=== PATIENT | male | born 1985 | race Caucasian/White ===

== ENCOUNTER → 2017-03-06 13:26 | Outpatient (CLI) | payer OTHER | END | disposition home or self-care (01) | LOC: D.LABREF 13:26 | DX: R22.1 Localized swelling, mass and lump, neck (principal) ==

== ENCOUNTER 2017-03-24 06:46 | Day surgery (SDC) | payer OTHER ==
[~2017-03-24 06:46] MED LIST: AMOXIL875 MG PO
[2017-03-24] MEDS ORDERED: AUGMENTIN 875-11 TAB PO (08:42)
[2017-03-24 08:46] VITALS: BP 124/74; BMI 37.4
--- NOTE | 2017-03-24 10:36 | HP ---
PATIENT: ADIS STONE MEDICAL RECORD: [id number] ACCOUNT: [id number] LOCATION:D.OPS : 84 ADMISSION DATE: 03/24/17 HISTORY AND PHYSICAL EXAMINATION HISTORY OF PRESENT ILLNESS: Adis is a 31-year-old male with a left neck mass. Pathology on cell block was negative for malignancy. CT shows a well demarcated cyst. 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 PAST MEDICAL HISTORY: Otherwise negative. PAST SURGICAL HISTORY: None. CURRENT MEDICATIONS: None. ALLERGIES: No known drug allergies. PHYSICAL EXAMINATION: GENERAL: He is healthy-appearing, developmentally normal. FACE: Normal, symmetric, no lesions. EYES: Sclerae and conjunctivae are normal. NOSE: No mass, polyps or drainage. ORAL CAVITY AND OROPHARYNX: Tongue protrudes in midline. Floor of the mouth is normal. The pharynx is normal. NECK: He has got a 4 cm mass medial to the sternocleidomastoid superiorly in level 2-3. He has no other masses or adenopathy. CHEST: Clear. CARDIOVASCULAR: Regular rate and rhythm. No murmur. EXTREMITIES: Normal. IMPRESSION: Left neck mass. PLAN: Excision of left neck mass, direct laryngoscopy, possible left neck dissection. TRANSINT:[id number] Voice Confirmation ID: [id number] DOCUMENT ID: [id number] FLAKO BLANCAS MD at 1036 CC: [id number] DICTATION DATE: 03/20/17 0950 ASSOCIATE DATA SCIENTIST: 03/20/17 1011 [facility] [address] [place] [address]
--- NOTE | 2017-03-31 17:12 | OP ---
PATIENT NAME: NELY STONE MEDICAL RECORD: [id number] :84 [facility] DATE: SURGEON: FLAKO ORTEGA MD DATE OF OPERATION: 03/24/2017 PREOPERATIVE DIAGNOSIS: Left neck mass. POSTOPERATIVE DIAGNOSIS: Left neck mass. PROCEDURE: Direct laryngoscopy and excision of left branchial cleft cyst. SURGEON: Flako Ortega MD ANESTHESIA: General orotracheal. BLOOD LOSS: Less than 5 cc. SPECIMENS: Left neck mass cyst. DRAINS: A single Benjamin drain through a separate stab incision inferior to the wound. COMPLICATIONS: None. DISPOSITION: Recovery stable. DESCRIPTION OF PROCEDURE: He was brought to the operating room and placed in supine position, sedated and intubated by anesthesia. The table was turned 90 degrees. A head drape was applied and he was positioned for laryngoscopy. A plastic tooth guard was used to protect the upper teeth. A Kleinsasser J laryngoscope was used to evaluate the hypopharynx, larynx, vallecula, base of tongue, supraglottic larynx, piriforms, post-cricoid area, and the cords. No lesions were identified. The laryngoscope was removed. The plastic tooth guard was removed. The tonsils, base of the tongue, and palate were all palpated and again no lesions were identified. Left neck was prepped and draped in the usual sterile fashion. An incision for left neck dissection was marked from the mastoid down across the midline and a small portion of the incision was made first from the anterior border of the sternocleidomastoid down towards the trachea. This incision was taken down through the platysma with cautery and then dissected down to the sternocleidomastoid muscle retracted superiorly allowing dissection directly down on to the cyst with a tonsil clamp. Some overlying fascia was divided with cautery and the cyst was dissected out. It was quite large, about 8 cm in length and there was some tethering superiorly. A syringe and a 1 inch 20-gauge needle was used to aspirate 12cc of cyst contents to decompress it to allow safe dissection superiorly. A clamp was placed over the needle hole and used for retraction inferiorly. The cyst was then dissected out completely intact, it was sent for path. Path was benign cyst, no evidence of carcinoma. Wound was carefully inspected. There was no evidence of any jugular chain adenopathy. It was completely clean and dry. It was irrigated copiously, repeatedly with 30 cc syringe with saline at least 10 times and then a drain was placed through a separate stab incision inferior to the wound. The platysma layer was closed with interrupted 3-0 Vicryl. Skin was closed with running subcuticular 5-0 Prolene. Steri-Strips and Mastisol were applied. He was awakened, extubated, and transported to recovery in good condition. No complications. OPERATIVE REPORT [id number] NELY STONE TRANSINT:[id number] Voice Confirmation ID: [id number] DOCUMENT ID: [id number] FLAKO ORTEGA MD at 1712 CC: [id number] DICTATION DATE: 03/24/17 1407 TESTING MANAGER: 03/24/17 1425 [facility] 03/24/17 [id number] [place] [address]
== END 2017-03-24 14:35 | disposition home or self-care (01) ==
LOC: D.OPS 06:46
DX: Q18.0 Sinus, fistula and cyst of branchial cleft (principal); Z01.812 Encounter for preprocedural laboratory examination